=== PATIENT | male | born 1985 | race Two or more races ===

== ENCOUNTER 2016-09-11 12:50 | Outpatient (CLI) | payer OTHER | END 2016-09-11 23:59 | disposition home or self-care (01) | LOC: WOU 12:50 | PROVIDERS: ATTEND Surgery | DX: S51.812D Laceration without foreign body of left forearm, subsequent encounter (principal); V89.2XXD Person injured in unspecified motor-vehicle accident, traffic, subsequent encounter; T14.8 Other injury of unspecified body region; R53.1 Weakness; Z87.891 Personal history of nicotine dependence | CPT/HCPCS: A6402; G0463 ==